=== PATIENT | male | born 1990 | race Caucasian/White ===

== ENCOUNTER 2018-03-20 07:15 | Emergency (ER) | payer MEDICARE, MEDICAID ==
--- NOTE | 2018-03-20 07:49 | EDM.PDOC ---
ED HPI GENERAL MEDICAL PROBLEM - General Chief Complaint: Lower Extremity Injury/Pain Stated Complaint: POSSIBLE SPRAIN TO RIGHT ANKLE Time Seen by Provider: 03/20/18 07:48 - History of Present Illness INITIAL COMMENTS - FREE TEXT/NARRATIVE: HISTORY AND PHYSICAL: History of present illness: Patient's a 28-year-old white male [facility] with a acute right ankle injury that occurred yesterday when he slipped in the shower he denies other trauma concern Review of systems: As per history of present illness and below otherwise all systems reviewed and negative. Past medical history: As per history of present illness and as reviewed below otherwise noncontributory. Surgical history: As per history of present illness and as reviewed below otherwise noncontributory. Social history: No reported history of drug or alcohol abuse. Family history: As per history of present illness and as reviewed below otherwise noncontributory. Physical exam: HEENT: Atraumatic, normocephalic, pupils reactive, negative for conjunctival pallor or scleral icterus, mucous membranes moist, throat clear, neck supple, nontender, trachea midline. Lungs: Clear to auscultation, breath sounds equal bilaterally, chest nontender. Heart: S1S2, regular, negative for clicks, rubs, or JVD. Abdomen: Soft, nondistended, nontender. Negative for masses or hepatosplenomegaly. Negative for costovertebral tenderness. Pelvis: Stable nontender. Genitourinary: Deferred. Rectal: Deferred. Extremities: Right ankle is some moderate swelling in region of the lateral malleolus no gross deformity no proximal fibula tenderness some mild tenderness also on the dorsolateral aspect of his right foot no gross deformity no point tenderness CMS and neurovascular is unremarkable Neuro: Awake, alert, oriented. Cranial nerves II through XII unremarkable. Cerebellum unremarkable. Motor and sensory unremarkable throughout. Exam nonfocal. Diagnostics: X-ray right ankle/right foot Therapeutics: To be determined Impression: #1 acute right ankle/foot injury Definitive disposition and diagnosis as appropriate pending reevaluation and review of above. 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 ED EXAM, GENERAL - Physical Exam Exam: See Below (See dictation) Course - Vital Signs Last Recorded V/S: Last Vital Signs Temp 36.3 C 03/20/18 07:28 Pulse 75 03/20/18 07:28 Resp 16 03/20/18 07:28 BP 116/73 03/20/18 07:28 Pulse Ox 99 03/20/18 07:28 - Orders/Labs/Meds Orders: Active Orders 24 hr Category Date Time Status Ankle Min 3V Rt [CR] Stat Exams 03/20/18 07:49 Taken Foot 2V Rt [CR] Stat Exams 03/20/18 07:50 Taken Departure - Departure Time of Disposition: 08:22 Disposition: Home, Self-Care 01 Condition: Good Clinical Impression: Ankle injury, Foot injury - Discharge Information Referrals: Tl Colvin MD [Primary Care Provider] - Forms: ED Department Discharge Additional Instructions: The following information is given to patients seen in the emergency department who are being discharged to home. This information is to outline your options for follow-up care. We provide all patients seen in our emergency department with a follow-up referral. The need for follow-up, as well as the timing and circumstances, are variable depending upon the specifics of your emergency department visit. If you don't have a primary care physician on staff, we will provide you with a referral. We always advise you to contact your personal physician following an emergency department visit to inform them of the circumstance of the visit and for follow-up with them and/or the need for any referrals to a consulting specialist. The emergency department will also refer you to a specialist when appropriate. This referral assures that you have the opportunity for followup care with a specialist. All of these measure are taken in an effort to provide you with optimal care, which includes your followup. Under all circumstances we always encourage you to contact your private physician who remains a resource for coordinating your care. When calling for followup care, please make the office aware that this follow-up is from your recent emergency room visit. If for any reason you are refused follow-up, please contact the [facility] emergency department at and asked to speak to the emergency department charge nurse. Derrick wrap as directed Motrin/Tylenol directed return as needed as discussed - My Orders Last 24 Hours: My Active Orders 03/20/18 07:49 Ankle Min 3V Rt [CR] Stat 03/20/18 07:50 Foot 2V Rt [CR] Stat - Assessment/Plan Last 24 Hours: My Active Orders 03/20/18 07:49 Ankle Min 3V Rt [CR] Stat 03/20/18 07:50 Foot 2V Rt [CR] Stat
--- NOTE | 2018-03-20 09:17 | CR ---
INDICATION: Pain TECHNIQUE: Right ankle 3 views COMPARISON: None FINDINGS: Bones: Alignment is normal. No fractures or bone lesions. Joint spaces: Unremarkable. Soft tissues: There is lateral soft tissue swelling. Dictated by: Nura Perez MD @ 03/20/2018 09:16:13 (Electronically Signed)
--- NOTE | 2018-03-20 09:19 | CR ---
Indication: Right foot pain. Technique: Right foot 2 views Comparison: None Findings: Bones: Alignment is normal. No fractures or bone lesions. Joint spaces: Joint spaces are well maintained. No degenerative changes. Soft tissues: Unremarkable. Impression: No findings to explain pain. Dictated by Nura Perez MD @ Mar 20 2018 9:15AM Signed by Dr. Nura Perez @ Mar 20 2018 9:18AM
== END 2018-03-20 08:32 | disposition home or self-care (01) ==
LOC: MW.ED 07:15
DX: S99.911A Unspecified injury of right ankle, initial encounter (principal); S99.921A Unspecified injury of right foot, initial encounter; W01.0XXA Fall on same level from slipping, tripping and stumbling without subsequent striking against object, initial encounter; Y93.E1 Activity, personal bathing and showering
CPT/HCPCS: 73610-26-RT; 73610-RT; 73620-26-RT; 73620-RT; 99283

== ENCOUNTER 2019-01-15 16:11 | Emergency (ER) | payer MEDICARE, MEDICAID ==
--- NOTE | 2019-01-15 17:03 | EDM.PDOC ---
ED HPI GENERAL MEDICAL PROBLEM - General Chief Complaint: Lower Extremity Injury/Pain Stated Complaint: FELL, KNEE PAIN Time Seen by Provider: 01/15/19 16:55 - History of Present Illness INITIAL COMMENTS - FREE TEXT/NARRATIVE: HISTORY AND PHYSICAL: History of present illness: Patient is a 28-year-old male who presents with bilateral knee pain left greater than right after he fell from standing height. He fell forward landing on his knees but did not hit his head or face or upper extremities. He did not pass out or black out and has no head neck or back pain no upper extremity complaints and no hip ankle or foot pain just pain at bilateral knees with abrasions. Prior to these events he was in his usual state of good health without systemic issues. The patient is here with caregivers. He did receive Tylenol for pain management Review of systems: As per history of present illness and below otherwise all systems reviewed and negative. Past medical history: As per history of present illness and as reviewed below otherwise noncontributory. Surgical history: As per history of present illness and as reviewed below otherwise noncontributory. Social history: No reported history of drug or alcohol abuse. Family history: As per history of present illness and as reviewed below otherwise noncontributory. Physical exam: General: Well-developed well-nourished thin man who is nontoxic and vital signs are normal. HEENT: Atraumatic, normocephalic, negative for conjunctival pallor or scleral icterus, mucous membranes moist, throat clear, neck supple, nontender, trachea midline. No facial defects deformities or abrasions and there are no midline step-offs tenderness defects of the cervical spine Lungs: Clear to auscultation, breath sounds equal bilaterally, chest nontender. Heart: S1S2, regular rate and rhythm no overt murmurs Abdomen: Soft, nondistended, nontender. NABS Pelvis: Stable nontender. No lateral hip tenderness Genitourinary: Deferred. Rectal: Deferred. Extremities: Atraumatic, full range of motion of all extremities with the exception of bilateral knees with there are superficial abrasions seen without any laceration and bilateral tenderness with palpation left greater than right. At the right knee there is no gross soft tissue swelling and bony architecture appears intact with normal alignment and only minimal tenderness with palpation. There is no joint effusion appreciated. At the left knee there is diffuse tenderness with a large suprapatellar effusion and ill-defined soft tissue swelling of the entire anterior aspect of the knee and patient resist movement of the knee. There is no distal tib-fib tenderness bilaterally nor any ankle or foot tenderness bilaterally and there is no proximal thigh tenderness bilaterally. Neurovascular unremarkable. Neuro: Awake, alert, oriented. Cranial nerves II through XII unremarkable. Cerebellum unremarkable. Motor and sensory unremarkable throughout. Exam nonfocal. Diagnostics: X-rays of bilateral knees Therapeutics: Crutches,aces to bilateral knees and knee immobilizer on the left knee Impression: bilateral knee contusions, left knee hemarthrosis, all secondary to fall Definitive disposition and diagnosis as appropriate pending reevaluation and review of above. 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 ED EXAM, GENERAL - Physical Exam Exam: See Below (See dictation) Course - Vital Signs Last Recorded V/S: Last Vital Signs Temp 36.4 C 01/15/19 16:45 Pulse 85 01/15/19 16:45 Resp 18 01/15/19 16:45 BP 133/88 01/15/19 16:45 Pulse Ox 100 01/15/19 16:45 - Orders/Labs/Meds Orders: Active Orders 24 hr Category Date Time Status DME for Discharge [COMM] Stat Oth 01/15/19 19:06 Ordered Departure - Departure Time of Disposition: 19:10 Disposition: Home, Self-Care 01 Condition: Good Clinical Impression: Knee contusion Qualifiers: Encounter type: initial encounter Laterality: unspecified laterality Qualified Code(s): S80.00XA - Contusion of unspecified knee, initial encounter - Discharge Information Referrals: Tl Colvin MD [Primary Care Provider] - Forms: ED Department Discharge Additional Instructions: The following information is given to patients seen in the emergency department who are being discharged to home. This information is to outline your options for follow-up care. We provide all patients seen in our emergency department with a follow-up referral. The need for follow-up, as well as the timing and circumstances, are variable depending upon the specifics of your emergency department visit. If you don't have a primary care physician on staff, we will provide you with a referral. We always advise you to contact your personal physician following an emergency department visit to inform them of the circumstance of the visit and for follow-up with them and/or the need for any referrals to a consulting specialist. The emergency department will also refer you to a specialist when appropriate. This referral assures that you have the opportunity for followup care with a specialist. All of these measure are taken in an effort to provide you with optimal care, which includes your followup. Under all circumstances we always encourage you to contact your private physician who remains a resource for coordinating your care. When calling for followup care, please make the office aware that this follow-up is from your recent emergency room visit. If for any reason you are refused follow-up, please contact the [facility] emergency department at and ask to speak to the emergency department charge nurse. [facility] [address] [place] [address], [address] [place] [address] Ice and elevate knees as much as possible and use [id number] Tylenol and ibuprofen for pain management. Please call our clinic and schedule follow-up in the orthopedics clinic using resources given to above.where the Derrick bandages to bilateral knees for swelling and wear the knee immobilizer as shown to you by nursing. Make sure to remove the immobilizer and thAce bandages at sleep times. Use crutches and do not weight-bear on the left leg until you're followed up in the clinic. - My Orders Last 24 Hours: My Active Orders 01/15/19 19:06 DME for Discharge [COMM] Stat - Assessment/Plan Last 24 Hours: My Active Orders 01/15/19 19:06 DME for Discharge [COMM] Stat
--- NOTE | 2019-01-15 18:59 | CR ---
Indication: Fall Technique: Bilateral knee AP, lateral and sunrise 6 views Comparison: None Findings: Right knee: No acute or significant findings. No sign of fracture or significant degenerative change. No joint effusion. Left knee: No evidence of fracture or dislocation. Large left knee effusion. Impression: : 1. Large left knee effusion without definite fracture. 2. Normal right knee. Dictated by Laurent Forde MD @ Jan 15 2019 6:56PM Signed by Dr. Laurent Forde @ Jan 15 2019 6:59PM
== END 2019-01-15 19:30 | disposition home or self-care (01) ==
LOC: MW.ED 16:11
DX: S80.01XA Contusion of right knee, initial encounter (principal); S80.02XA Contusion of left knee, initial encounter; Z79.899 Other long term (current) drug therapy; W18.39XA Other fall on same level, initial encounter
CPT/HCPCS: 735622650; 73562-50; 99282; 99283-25